=== PATIENT | female | born 1980 | race Two or more races ===

== ENCOUNTER 2017-05-20 23:25 | Emergency (ER) | payer SELFPAY ==
--- NOTE | 2017-05-20 23:53 | PHYS DOC ---
Adult General Chief Complaint Chief Complaint: ABDOMINAL PAIN HPI HPI Patient is a 36 year old female who presents with complaint of abdominal pain. Patient is [place]-speaking only and an professor of environmental engineering line was used to gather history. Patient states that she has been having pain on the right side of her abdomen for the past 10 days. Patient states that the pain comes and goes but got significantly worse and tonight. The patient rates her pain currently 6 out of 10. Patient states the pain is sharp and located along the right upper and lower portion of her abdomen. Patient states that radiates towards her right flank. Patient denies any known alleviating or exacerbating factors. Patient has history of hypertension. Patient denies any previous abdominal surgeries. Patient has not had any associated fever, nausea, vomiting, or diarrhea with her symptoms. Review of Systems Review of Systems Constitutional: Denies fever or chills [] Eyes: Denies change in visual acuity, redness, or eye pain [] HENT: Denies nasal congestion or sore throat [] Respiratory: Denies cough or shortness of breath [] Cardiovascular: Denies chest pain or edema[] GI: Abdominal pain, denies nausea, vomiting, or diarrhea[] : Denies dysuria or hematuria [] Musculoskeletal: Denies back pain or joint pain [] Integument: Denies rash or skin lesions [] Neurologic: Denies headache, focal weakness or sensory changes [] All other systems were reviewed and found to be within normal limits, except as documented in this note. Current Medications Current Medications Current Medications Medications (Trade) Dose Ordered Sig/Sera Start Time Stop Time Status Last Admin Dose Admin Fentanyl Citrate (Fentanyl 2ml Vial) 50 mcg PRN Q15MIN PRN 05/21/17 00:00 05/21/17 23:59 05/21/17 00:19 50 MCG Ondansetron HCl (Zofran) 4 mg 1X ONCE 05/21/17 00:00 05/21/17 00:06 DC 05/21/17 00:15 4 MG Sodium Chloride 1,000 ml @ 1,000 mls/hr Q1H 05/21/17 00:00 05/21/17 00:59 DC 05/21/17 00:15 1,000 MLS/HR Allergies Allergies Allergies Coded Allergies Type Severity Reaction Last Updated Verified No Known Drug Allergies 05/20/17 No Physical Exam Physical Exam Constitutional: Alert, afebrile, appears in mild to moderate discomfort. [] HENT: Normocephalic, atraumatic, bilateral external ears normal, oropharynx moist, no oral exudates, nose normal. [] Eyes: PERRLA, EOMI, conjunctiva normal, no discharge. [] Neck: Normal range of motion, no tenderness, supple, no stridor. [] Cardiovascular:Heart rate regular rhythm, no murmur [] Lungs & Thorax: Bilateral breath sounds clear to auscultation [] Abdomen: Bowel sounds normal, soft, right upper and lower quadrant tenderness to palpation with mild guarding, no rebound tenderness, no masses, no pulsatile masses. [] Skin: Warm, dry, no erythema, no rash. [] Back: No tenderness, no CVA tenderness. [] Extremities: No tenderness, no cyanosis, no clubbing, ROM intact, no edema. [] Neurologic: Alert and oriented X 3, normal motor function, normal sensory function, no focal deficits noted. [] Current Patient Data Vital Signs Vital Signs Date Time Temp Pulse Resp B/P (MAP) Pulse Ox O2 Delivery O2 Flow Rate FiO2 05/21/17 01:30 58 21 115/57 (76) 99 Room Air 05/20/17 23:35 98.2 98.2 Lab Values Laboratory Tests Test 05/20/17 23:50 05/20/17 23:53 White Blood Count 7.4 x10^3/uL (4.0-11.0) Red Blood Count 4.68 x10^6/uL (3.50-5.40) Hemoglobin 13.8 g/dL (12.0-15.5) Hematocrit 41.3 % (36.0-47.0) Mean Corpuscular Volume 88 fL (79-100) Mean Corpuscular Hemoglobin 30 pg (25-35) Mean Corpuscular Hemoglobin Concent 34 g/dL (31-37) Red Cell Distribution Width 13.2 % (11.5-14.5) Platelet Count 246 x10^3/uL (140-400) Neutrophils (%) (Auto) 50 % (31-73) Lymphocytes (%) (Auto) 41 % (24-48) Monocytes (%) (Auto) 7 % (0-9) Eosinophils (%) (Auto) 2 % (0-3) Basophils (%) (Auto) 1 % (0-3) Neutrophils # (Auto) 3.7 x10^3uL (1.8-7.7) Lymphocytes # (Auto) 3.0 x10^3/uL (1.0-4.8) Monocytes # (Auto) 0.5 x10^3/uL (0.0-1.1) Eosinophils # (Auto) 0.1 x10^3/uL (0.0-0.7) Basophils # (Auto) 0.0 x10^3/uL (0.0-0.2) Urine Collection Type Unknown Urine Color Yellow Urine Clarity Clear Urine pH 7.0 Urine Specific [place] <=1.005 Urine Protein Negative mg/dL (NEG-TRACE) Urine Glucose (UA) Negative mg/dL (NEG) Urine Ketones (Stick) Negative mg/dL (NEG) Urine Blood Moderate (NEG) Urine Nitrite Negative (NEG) Urine Bilirubin Negative (NEG) Urine Urobilinogen Dipstick 0.2 mg/dL (0.2 mg/dL) Urine Leukocyte Esterase Negative (NEG) Urine RBC 6-10 /HPF (0-2) Urine WBC 0 /HPF (0-4) Urine Squamous Epithelial Cells Few /LPF Urine Bacteria 0 /HPF (0-FEW) Urine Mucus Slight /LPF Sodium Level 141 mmol/L (136-145) Potassium Level 3.7 mmol/L (3.5-5.1) Chloride Level 108 mmol/L (98-107) H Carbon Dioxide Level 23 mmol/L (21-32) Anion Gap 10 (6-14) Blood Urea Nitrogen 7 mg/dL (7-20) Creatinine 0.7 mg/dL (0.6-1.0) Estimated GFR (Cockcroft-Gault) 95.8 BUN/Creatinine Ratio 10 (6-20) Glucose Level 104 mg/dL (70-99) H Calcium Level 8.7 mg/dL (8.5-10.1) Total Bilirubin 0.1 mg/dL (0.2-1.0) L Aspartate Amino Transferase (AST) 17 U/L (15-37) Alanine Aminotransferase (ALT) 22 U/L (14-59) Alkaline Phosphatase 70 U/L (46-116) Total Protein 7.2 g/dL (6.4-8.2) Albumin 3.6 g/dL (3.4-5.0) Albumin/Globulin Ratio 1.0 (1.0-1.7) Lipase 145 U/L (73-393) POC Urine HCG, Qualitative Hcg negative (Negative) Laboratory Tests 05/20/17 23:50 Laboratory Tests 05/20/17 23:50 EKG EKG Not performed[] Radiology/Procedures Radiology/Procedures [facility] [address] [place] [address] IMAGING REPORT Signed PATIENT: OSIRIS REID ACCOUNT: [id number] : 1980 LOCATION: ER AGE: 36 SEX: F EXAM STATUS: REG ER ORD. PHYSICIAN: YVETTE ROLDAN MD REASON: right-sided flank pain and abdominal pain PROCEDURE: CT ABDOMEN PELVIS WO CONTRAST INDICATION: right flank pain COMPARISON: None. TECHNIQUE: Axial CT images were obtained through the abdomen and pelvis without intravenous contrast. Limited assessment of solid organ structures and vasculature secondary to lack of intravenous contrast. One or more of the following individualized dose reduction techniques were utilized for this examination: 1. Automated exposure control; 2. Adjustment of the mA and/or kV according to patient size; 3. Use of iterative reconstruction technique. FINDINGS: Abdominal aorta is not grossly aneurysmal. No intrahepatic bile duct dilation. Poor evaluation of pancreas without contrast. Spleen unremarkable. No left-sided hydronephrosis. No right-sided hydronephrosis. The urinary bladder was distended with urine at time of exam. Within the right adnexa there is a fat-containing lesion with soft tissue component measuring up to about 27 mm. The appendix measures up to about 7 mm but no definite adjacent inflammation to the fat at this time. Small fat-containing umbilical hernia. IMPRESSION: 1. No hydronephrosis or radiopaque obstructive ureter stone. 2. The appendix is borderline dilated through a portion of its course but there is no definite adjacent inflammation at this time. Given the lack of adjacent inflammation this does not fill all of the criteria for appendicitis but if there is high clinical concern and further imaging clarification is desired a follow-up CT could be obtained at a later time to assess for interval increase in size or development of edema. 3. The wall of a few loops of small bowel appears mildly prominent. This could be secondary to lack of distention but if there are symptoms in the region causes such as inflammation from enteritis not excluded. 4. Fat-containing lesion right adnexal region. Most likely cause would be a dermoid. Electronically signed by: Terry Rodriguez MD (05/21/2017 1:40 AM) [facility] DICTATED and SIGNED BY: TERRY RODRIGUEZ MD DATE: 05/21/17 0117 CC: YVETTE ROLDAN MD; NO PCP ~ [facility] [address] [place] [address] IMAGING REPORT Signed PATIENT: OSIRIS REID ACCOUNT: [id number] : 1980 LOCATION: ER AGE: 36 SEX: F EXAM STATUS: REG ER ORD. PHYSICIAN: YVETTE ROLDAN MD REASON: right upper quadrant abdominal pain PROCEDURE: ABDOMEN LTD INDICATION : ABD PAIN COMPARISON: None TECHNIQUE: Multiple ultrasound images obtained through the abdomen in grayscale and color. FINDINGS: Liver: Echotexture within normal limits in visualized portions of liver. Gallbladder: No wall thickening or stones. IVC: Partially distended at level of liver. Common Bile Duct: Not dilated. Pancreas: Poorly visualized Right Kidney: No hydronephrosis. IMPRESSION: 1. No biliary ductal dilation or gallstones. Electronically signed by: Terry Rodriguez MD (05/21/2017 12:28 AM) [facility] DICTATED and SIGNED BY: TERRY RODRIGUEZ MD DATE: 05/21/17 0024 CC: YVETTE ROLDAN MD; NO PCP ~ [] Course & Med Decision Making Course & Med Decision Making Pertinent Labs and Imaging studies reviewed. (See chart for details) Patient was given IV fentanyl, fluids, and Zofran in the emergency department. On reevaluation, patient states that her pain is now a 1 out of 10 and she feels much better. The patient's CT scan showed an enlarged appendix with no definite evidence of appendicitis. The patient is afebrile and has no evidence of leukocytosis or guarding on exam at this time. Spoke with the patient regarding the findings on her CT scan. Patient states that she does not have a primary physician at this time. I offered the patient admission to the hospital for serial abdominal exams and surgery consult as an early appendicitis cannot be completely ruled out at this time. The patient states that she does not wish to do this but is agreeable to make an appointment with a primary doctor in the next few days for reevaluation. The patient was also given return precautions to the emergency department in the event of any worsening symptoms. Patient voiced understanding and was in agreement with treatment plan at discharge. Dragon Disclaimer Dragon Disclaimer This electronic medical record was generated, in whole or in part, using a voice recognition dictation system. Departure Departure Impression: Primary Impression: Right lower quadrant abdominal pain Disposition: HOME, SELF-CARE Condition: IMPROVED Referrals: NO PCP (PCP) Patient Instructions: Abdominal Pain, Possible Early Appendicitis Additional Instructions: Follow-up with your primary doctor in 2 days for reevaluation. Return to the emergency department for any worsening symptoms. YVETTE ROLDAN MD May 20, 2017 23:53
[2017-05-20 23:59] LABS: BASO % 1 % (0-3); EOS % 2 % (0-3); HEMATOCRIT 41.3 % (36.0-47.0); HEMOGLOBIN 13.8 g/dL (12.0-15.5); LYMPH % 41 % (24-48); MEAN CORPUSCULAR HEMOGLOBIN 30 pg (25-35); MEAN CORPUSCULAR HGB CONC 34 g/dL (31-37); MEAN CORPUSCULAR VOLUME 88 fL (79-100); MONO % 7 % (0-9); NEUT % 50 % (31-73); PLATELET COUNT 246 x10^3/uL (140-400); RED BLOOD COUNT 4.68 x10^6/uL (3.50-5.40); RED CELL DISTRIBUTION WIDTH 13.2 % (11.5-14.5); WHITE BLOOD COUNT 7.4 x10^3/uL (4.0-11.0)
[2017-05-21] MEDS ORDERED: fentaNYL PF VIAL 100 MCG/2 ML VIAL IV PRN
[2017-05-21] MEDS ORDERED: ONDANSETRON PF 4 MG/2 ML VIAL. IV ONE
[2017-05-21] MEDS ORDERED: IV NORMAL SALINE 1000ML BAG 1,000 ML IV SCH
[2017-05-21 00:01] LABS: BILIRUBIN,URINE NEGATIVE (NEG); GLUCOSE,URINE NEGATIVE (NEG); NITRITE,URINE NEGATIVE (NEG); PROTEIN,URINE NEGATIVE (NEG-TRACE); UROBILINOGEN,URINE 0.2 mg/dL (0.2 mg/dL)
[2017-05-21 00:06] LABS: CALCIUM 8.7 mg/dL (8.5-10.1); CREATININE 0.7 mg/dL (0.6-1.0); GFR 95.8; POTASSIUM 3.7 mmol/L (3.5-5.1)
[2017-05-21 00:08] LABS: BACTERIA,URINE 0 /HPF (0-FEW); SQUAMOUS EPITHELIAL CELL,UR FEW /LPF; WBC,URINE 0 /HPF (0-4)
[2017-05-21 00:14] LABS: ALBUMIN 3.6 g/dL (3.4-5.0); TOTAL BILIRUBIN 0.1 mg/dL (0.2-1.0); TOTAL PROTEIN 7.2 g/dL (6.4-8.2)
--- NOTE | 2017-05-21 00:31 | RAD ---
INDICATION : ABD PAIN COMPARISON: None TECHNIQUE: Multiple ultrasound images obtained through the abdomen in grayscale and color. FINDINGS: Liver: Echotexture within normal limits in visualized portions of liver. Gallbladder: No wall thickening or stones. IVC: Partially distended at level of liver. Common Bile Duct: Not dilated. Pancreas: Poorly visualized Right Kidney: No hydronephrosis. IMPRESSION: 1. No biliary ductal dilation or gallstones. Electronically signed by: Wilbert Rodriguez MD (05/21/2017 12:28 AM) [facility] [place]
--- NOTE | 2017-05-21 01:43 | RAD ---
INDICATION: right flank pain COMPARISON: None. TECHNIQUE: Axial CT images were obtained through the abdomen and pelvis without intravenous contrast. Limited assessment of solid organ structures and vasculature secondary to lack of intravenous contrast. One or more of the following individualized dose reduction techniques were utilized for this examination: 1. Automated exposure control; 2. Adjustment of the mA and/or kV according to patient size; 3. Use of iterative reconstruction technique. FINDINGS: Abdominal aorta is not grossly aneurysmal. No intrahepatic bile duct dilation. Poor evaluation of pancreas without contrast. Spleen unremarkable. No left-sided hydronephrosis. No right-sided hydronephrosis. The urinary bladder was distended with urine at time of exam. Within the right adnexa there is a fat-containing lesion with soft tissue component measuring up to about 27 mm. The appendix measures up to about 7 mm but no definite adjacent inflammation to the fat at this time. Small fat-containing umbilical hernia. IMPRESSION: 1. No hydronephrosis or radiopaque obstructive ureter stone. 2. The appendix is borderline dilated through a portion of its course but there is no definite adjacent inflammation at this time. Given the lack of adjacent inflammation this does not fill all of the criteria for appendicitis but if there is high clinical concern and further imaging clarification is desired a follow-up CT could be obtained at a later time to assess for interval increase in size or development of edema. 3. The wall of a few loops of small bowel appears mildly prominent. This could be secondary to lack of distention but if there are symptoms in the region causes such as inflammation from enteritis not excluded. 4. Fat-containing lesion right adnexal region. Most likely cause would be a dermoid. Electronically signed by: Wilbert Rodriguez MD (05/21/2017 1:40 AM) [facility]
[2017-05-21 02:15] VITALS: BP 102/61
== END 2017-05-21 02:19 | disposition home or self-care (01) ==
LOC: ER 23:25
DX: R10.31 Right lower quadrant pain (principal); R10.11 Right upper quadrant pain; I10 Essential (primary) hypertension
CPT/HCPCS: 36415; 74176; 76705; 80053; 81001; 81025; 83690; 85025; 96361; 96374; 96375; 99285; J2405; J3010; J7030